=== PATIENT | male | born 1945 | race African-American/Black ===

== ENCOUNTER 2016-12-21 12:32 | Day surgery (SDC) | payer OTHER, BC ==
--- NOTE | 2016-12-21 14:18 | PDOC ---
History of Present Illness <Zhen Freeman - Last Filed: 12/21/16 15:14> - History of Present Illness Initial Comments: 12/21/16 15:17 The patient is a 71 year old male, with a significant past medical history of ESRD (HD on Wednesday, , and Wednesday), who presents to the emergency department sent from Dr. Samano office for a clogged AV graft today. The patient denies any other symptoms, but admits that his graft feels clogged. He denies chest pain, shortness of breath, headache and dizziness. He denies fever, chills, nausea, vomit, diarrhea and constipation. He denies dysuria, frequency, urgency and hematuria. PCP - Dr. Kunz [id number] <Marilin Taylor - Last Filed: 12/21/16 15:19> - General Stated Complaint: AV GRAFT EVAL Time Seen by Provider: 12/21/16 14:16 Past History - Past Medical History Anemia: No Asthma: No Cancer: No Cardiac Disorders: Yes (2008-[facility]) CVA: No COPD: No CHF: No Dementia: No Diabetes: No Dialysis: Yes (Wed) GI Disorders: No Disorders: No HTN: Yes Hypercholesterolemia: No HIV: Yes Liver Disease: No Seizures: No Thyroid Disease: No - Surgical History Abdominal Surgery: No Appendectomy: No Cardiac Surgery: Yes ([facility]) Cholecystectomy: No Lung Surgery: No Neurologic Surgery: No Orthopedic Surgery: No - Psycho/Social/Smoking Cessation Hx Suicidal Ideation: No Smoking History: Current every day smoker Have you smoked in the past 12 months: Yes Number of Cigarettes Smoked Daily: 20 Information on smoking cessation initiated: No 'Breaking Loose' booklet given: 10/24/14 Hx Alcohol Use: No Drug/Substance Use Hx: No Substance Use Type: None Hx Substance Use Treatment: No <Zhen Freeman - Last Filed: 12/21/16 15:14> <Marilin Taylor - Last Filed: 12/21/16 15:19> - Past Medical History Allergies/Adverse Reactions: Allergies Allergy/AdvReac Type Severity Reaction Status Date / Time No Known Drug Allergies Allergy Verified 12/21/16 12:39 Home Medications: Ambulatory Orders Aspirin [ASA -] 325 mg PO DAILY 10/23/14 Carvedilol [Coreg -] 25 mg PO BID 10/23/14 Clopidogrel Bisulfate [Plavix -] 75 mg PO DAILY 10/23/14 Efavirenz [Sustiva] 600 mg PO DAILY 10/23/14 Hydralazine HCl 25 mg PO TID 10/23/14 Ipratropium/Albuterol Sulfate [Combivent Respimat Inhal [place]] 1 inh IH QID Lamivudine Oral Soln [Epivir Oral Solution -] 150 mg PO DAILY 10/23/14 Sevelamer Carbonate [Renvela] 2,400 mg PO TID 10/23/14 Tenofovir Disoproxil Fumarate [Viread] 300 mg PO WEEKLY 10/23/14 Oxycodone HCl [Roxicodone -] 5 mg PO Q6H #20 tablet 10/24/14 Review of Systems - Review of Systems Constitutional: No: Chills, Fever Respiratory: No: Shortness of Breath Cardiac (ROS): No: Chest Pain Musculoskeletal: Yes: Muscle Pain All Other Systems: Reviewed and Negative <Zhen Freeman - Last Filed: 12/21/16 15:14> *Physical Exam - Vital Signs Last Vital Signs Temp Pulse Resp BP Pulse Ox 98 F 80 18 111/61 96 12/21/16 12:33 12/21/16 12:33 12/21/16 12:33 12/21/16 12:33 12/21/16 12:33 <Zhen Freeman - Last Filed: 12/21/16 15:14> - Vital Signs Last Vital Signs Temp Pulse Resp BP Pulse Ox 98 F 80 18 111/61 96 12/21/16 12:33 12/21/16 12:33 12/21/16 12:33 12/21/16 12:33 12/21/16 12:33 - Physical Exam Comments: 12/21/16 15:18 GENERAL: The patient is awake, alert, and fully oriented, in no acute distress. HEAD: Normal with no signs of trauma. EYES: Pupils equal, round and reactive to light, extraocular movements intact, sclera anicteric, conjunctiva clear with no pallor. ENT: Ears normal, nares patent, oropharynx clear without exudates. Moist mucous membranes. NECK: Normal range of motion, supple without lymphadenopathy, JVD, or masses. LUNGS: Breath sounds equal, clear to auscultation bilaterally. No wheeze/ crackles. HEART: Regular rate and rhythm, normal S1 and S2 without murmur or rub. ABDOMEN: Soft/nontender/nondistended. BS wnl. No guarding or rebound. No palpable masses. No hepatosplenomegaly. EXTREMITIES: (+) Left arm fistula. good distal pulses. no extremity edema. No easily palpable thrill through fistula. No obvious cellulitis. Normal range of motion, no edema. No clubbing or cyanosis. No cords, erythema, or tenderness. NEUROLOGICAL: Cranial nerves II through XII grossly intact. Normal speech, normal gait. PSYCH: Normal mood, normal affect. SKIN: Warm, Dry, normal turgor, no rashes or lesions noted. <Marilin Taylor - Last Filed: 12/21/16 15:19> Heart Score/ECG Review #1 ECG reviewed & interpreted by me at: 15:06 General ECG Interpretation: Sinus Rhythm, Normal Rate (69), Normal Intervals ( LBBB), No acute ischemic changes <Zhen Freeman - Last Filed: 12/21/16 15:14> ED Treatment Course - LABORATORY CBC & Chemistry Diagram: 12/21/16 14:30 12/21/16 14:30 <Zhen Freemna - Last Filed: 12/21/16 15:14> - LABORATORY CBC & Chemistry Diagram: 12/21/16 14:30 12/21/16 14:30 - ADDITIONAL ORDERS Additional order review: 12/21/16 14:30 RBC 2.94 L MCV 109.7 H MCHC 33.6 RDW 15.4 MPV 7.1 L Neutrophils % 74.2 Lymphocytes % 14.7 Monocytes % 8.9 Eosinophils % 1.6 Basophils % 0.6 <Marilin Taylor - Last Filed: 12/21/16 15:19> Medical Decision Making - Medical Decision Making 12/21/16 15:03 A portion of this note was documented by scribe services under my direction. I have reviewed the details of the note, within reason, and agree with the documentation with the following case summary and management plan written by me. 71-year-old male sent for left AV graft repair secondary to clot. Had successful dialysis 2 days ago as scheduled. Complaining of some swelling to the area, otherwise without symptoms. Exam as noted 71-year-old male for AV graft repair. Pre-op labs Dr. Choe aware, awaiting OR <Zhen Freeman - Last Filed: 12/21/16 15:14> *DC/Admit/Observation/Transfer - Discharge Dispostion Admit: Yes <Zhen Freeman - Last Filed: 12/21/16 15:14> - Attestations Scribe Attestion: 12/21/16 15:19 Documentation prepared by Marilin Taylor, acting as medical laboratory manager for Zhen Freeman MD, <Marilin Taylor - Last Filed: 12/21/16 15:19> Diagnosis at time of Disposition: Clotted renal dialysis AV graft Qualifiers: Encounter type: initial encounter Qualified Code(s): T82.868A - Thrombosis due to vascular prosthetic devices, implants and grafts, initial encounter - Referrals Referrals: Anthony Kunz MD [Primary Care Provider] -
[2016-12-21 14:52] LABS: BASOPHIL 0.6 % (0-2.0); EOSINOPHIL 1.6 % (0-4.5); MCH 36.9 pg (25.7-33.7); MCHC 33.6 g/dl (32.0-35.9); MEAN CELL VOLUME 109.7 fl (80-96); MEAN PLT VOLUME 7.1 fl (7.5-11.1); NEUTROPHILS 74.2 % (42.8-82.8); PLATELET COUNT 164 K/MM3 (134-434); RDW 15.4 % (11.9-15.9); WHITE BLOOD COUNT 8.7 K/mm3 (4.0-10.0)
[2016-12-21 15:10] LABS: INR 1.11 (0.82-1.09); PROTHROMBIN TIME (PATIENT) 12.2 SEC (9.98-11.88)
[2016-12-21 15:13] LABS: ACTIVATED PTT 33.2 SECONDS (26.9-34.4)
[2016-12-21 15:18] LABS: ALBUMIN 2.9 g/dl (3.4-5.0); ANION GAP 8 (8-16); BILIRUBIN,TOTAL 0.3 mg/dL (0.2-1.0); CALCIUM 8.3 mg/dL (8.5-10.1); CO2 29 mmol/L (21-32); GLUCOSE,RANDOM 109 mg/dL (74-106); SGOT/AST 30 U/L (15-37); SGPT/ALT 20 U/L (12-78); TOT PROT 7.7 g/dl (6.4-8.2)
[2016-12-21 15:23] LABS: ALK PHOS 119 U/L (45-117)
--- NOTE | 2016-12-21 15:37 | HP ---
Satellite H - Chief Complaint Chief Complaint: Clotted AV graft History of Present Illness: 71 year old male ESRD on HD with AV graft which is thrombosed. Last dialysis Wednesday. He has had several angio procedures and stents done in the [place]. History Source: Patient Limitations to Obtaining History: No Limitations - Past Medical History Allergies/Adverse Reactions: Allergies Allergy/AdvReac Type Severity Reaction Status Date / Time No Known Drug Allergies Allergy Verified 12/21/16 12:39 Cardiovascular: Yes: HTN Renal/: Yes: Renal Failure Infectious Disease: Yes: AIDS - Current Medications Current Medications: Home Medications Medication Instructions Recorded Aspirin [ASA -] 325 mg PO DAILY 10/23/14 Carvedilol [Coreg -] 25 mg PO BID 10/23/14 Clopidogrel Bisulfate [Plavix -] 75 mg PO DAILY 10/23/14 Efavirenz [Sustiva] 600 mg PO DAILY 10/23/14 Hydralazine HCl 25 mg PO TID 10/23/14 Ipratropium/Albuterol Sulfate 1 inh IH QID 10/23/14 [Combivent Respimat Inhal [place]] Lamivudine Oral Soln [Epivir Oral 150 mg PO DAILY 10/23/14 Solution -] Sevelamer Carbonate [Renvela] 2,400 mg PO TID 10/23/14 Tenofovir Disoproxil Fumarate 300 mg PO WEEKLY 10/23/14 [Viread] Oxycodone HCl [Roxicodone -] 5 mg PO Q6H #20 tablet 10/24/14 Satellite Physical Exam - Physical Examination Vital Signs: Vital Signs Period Temp Pulse Resp BP Sys/Adame Pulse Ox Last 24 Hr 98 F 80 18 111/61 96 General Appearance: No Distress ENT: Clear Lung: Clear to auscultation Heart: Regular rate & rhythm Abdomen: Soft Extremities: No edema, Other (Upper arm graft with no pulse. 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
[2016-12-21] MEDS ORDERED: HEPARIN NA (PORCINE) 5,000 UNITS/ML 1ML VIAL ONE ×3 (15:47→19:48)
[2016-12-21] MEDS ORDERED: LIDOCAINE HCL 1%, 10 MG/ML (20ML VIAL) ONE ×2 (15:47→18:26)
[2016-12-21 16:21] LABS: CREATININE 7.6 mg/dL (0.7-1.3)
[2016-12-21] MEDS ORDERED: INSULIN REGULAR HUMAN 100 UNITS/ML *VIAL IVPUSH ONE (16:38)
[2016-12-21] MEDS ORDERED: DEXTROSE 50%-WATER - 25 GM/50 ML VIAL IVPUSH ONE (16:38)
[2016-12-21] MEDS ORDERED: INSULIN REGULAR HUMAN 100 UNITS/ML *VIAL ONE (16:56)
[2016-12-21] MEDS ORDERED: DEXTROSE 50%-WATER 50 ML DISP.SYRIN ONE (16:56)
[2016-12-21] MEDS ORDERED: MIDAZOLAM HCL 2 MG/2 ML SINGLE DOSE VIAL ONE (19:00)
[2016-12-21] MEDS ORDERED: LIDOCAINE HCL 1%, 10 MG/ML (20ML VIAL) IJ ONE (19:20)
[2016-12-21] MEDS ORDERED: oxyCODONE HCL 5 MG TABLET PO PRN (20:15)
--- NOTE | 2016-12-21 20:15 | OP ---
Operative Note - Note: Operative Date: 12/21/16 Pre-Operative Diagnosis: Thrombosed AV graft left arm Operation: Open thrombectomy AV graft, venogram Findings: Chronic scarred graft with multiple overlapping stents in proximal and distal ends. Venogram of the venous outflow showed patent stents with no severe stenosis. Central veins were patent Post-Operative Diagnosis: Same as Pre-op Surgeon: Nagi Choe Anesthesiologist/BLOCK FEEDER: Jonathon Pacheco Anesthesia: Fractional Specimens Removed: Clot Estimated Blood Loss (mls): 50
[2016-12-21] MEDS ORDERED: ONDANSETRON 4 MG/2 ML VIAL IVPUSH PRN (20:24)
[2016-12-21] MEDS ORDERED: PATIENT'S OWN MEDICATION (NON-FORMULARY) (Ipratropium/Albuterol Sulfate [Combivent Respima IH SCH (22:00)
[2016-12-21] MEDS: hydrALAZINE HCL 25 MG TABLET (FP) PO SCH (22:14)
[2016-12-21] MEDS: CARVEDILOL 25 MG TABLET (FP) PO SCH (22:15)
[2016-12-21 23:10] VITALS: BMI 18.8
[2016-12-22] MEDS: hydrALAZINE HCL 25 MG TABLET (FP) PO SCH ×2 (06:12→14:33)
[2016-12-22] MEDS: SEVELAMER CARBONATE 800 MG TAB (FP) PO SCH ×2 (08:09→11:57)
--- NOTE | 2016-12-22 08:51 | PN ---
Progress Note (short form) - Note Progress Note: RENAL 71 HIV POS ESRD ON HD FOR YEARS LEFT ARM AVG CLOTTED OP NOTE REVIEWED SUCCESSFUL DECLOT PATENT STENTS K 6.4 HB 10.9 ABOUT TO START HD HIPS 20 NR 3 HR K2 CA2.5 [facility] 1.5 KG NO EPO DC HOME POST HD
[2016-12-22] MEDS ORDERED: CLOPIDOGREL BISULFATE 75 MG TABLET (FP) PO SCH (10:00)
[2016-12-22] MEDS ORDERED: lamiVUDine 10 MG/1 ML BULK BOTTLE PO SCH (10:00)
[2016-12-22] MEDS ORDERED: EFAVIRENZ 600 MG TABLET PO SCH (10:00)
[2016-12-22] MEDS ORDERED: ASPIRIN 81 MG CHEWABLE TABLETS PO SCH (10:00)
[2016-12-22] MEDS: CARVEDILOL 25 MG TABLET (FP) PO SCH (11:14)
[2016-12-22] MEDS ORDERED: PT OWN MED DRAWER 7, Y5N ONE (11:15)
--- NOTE | 2016-12-22 11:40 | EKG ---
Test Reason : Blood Pressure : / mmHG Vent. Rate : 069 BPM Atrial Rate : 069 BPM P-R Int : 192 ms QRS Dur : 162 ms QT Int : 470 ms P-R-T Axes : 050 -34 137 degrees QTc Int : 503 ms NORMAL SINUS RHYTHM LEFT AXIS DEVIATION LEFT BUNDLE BRANCH BLOCK ABNORMAL ECG WHEN COMPARED WITH ECG OF 24-OCT-2014 07:53, T WAVE VARIATION Confirmed by MYRANDA TATE MD ([id number]) on 12/22/2016 11:40:18 AM Referred By: Confirmed By:MYRANDA TATE MD
[2016-12-22 12:12] VITALS: TEMP 99.1
--- NOTE | 2016-12-22 12:13 | PN ---
Progress Note (short form) - Note Progress Note: Patient seen and examined prior to HD. Patient states he is feeling ok and has no pain. He is looking forward to going home after dialysis and his will pick him up. No complaints. Last Vital Signs Temp Pulse Resp BP Pulse Ox 99.1 F 69 20 123/60 98 12/22/16 09:00 12/22/16 09:00 12/22/16 09:00 12/22/16 09:00 12/21/16 23:13 Exam: Gen: NAD LUE with dressing c/d/i, good thrill A/P POD# 1 s/p open thrombectomy AV graft, venogram Patient to be discharged today after HD, plan to follow up with Dr. Choe in [address] Choe
--- NOTE | 2016-12-22 12:57 | OP ---
DATE OF OPERATION: 12/21/2016 SURGEON: Nagi Soto MD PROCEDURE: Open thrombectomy, left arm atrioventricular graft with venogram. PREOPERATIVE DIAGNOSIS: Thrombosed atrioventricular graft. POSTOPERATIVE DIAGNOSIS: Thrombosed atrioventricular graft. ANESTHESIA: Fractional. ANESTHESIOLOGIST: Jonathon Pacheco DO OPERATIVE FINDINGS: The left upper arm AV graft was thrombosed. The graft contained multiple overlapping stents at the proximal and distal ends with a short area of unstented graft in the midportion of the upper arm. Venography after thrombectomy showed no severe stenosis in the venous outflow section of the graft. OPERATIVE PROCEDURE: Following routine patient identification with site and side verification, intravenous sedation was established. The left arm was prepped with ChloraPrep. Time-out was performed. Then 1% Xylocaine infiltrated over the portion of the graft in the upper arm where there were no stents. Skin incision was made and carried down to the subcutaneous tissues using cautery for hemostasis. The graft was mobilized from the surrounding tissues, which were heavily indurated and adherent to the graft. The graft was encircled with Vessel Loops. A transverse incision was made in the graft. A No. 4 Leroy catheter was passed proximally and withdrawn with removal of clot. Several more passes of the catheter were attempted. There was multiple catheter breakage due to the irritation from the stents. Eventually venous back bleeding was restored. Venography with dilute contrast was then performed with the above-noted findings. The graft was filled with heparin solution and was occluded with a vascular clamp. Thrombectomy of the arterial end was then performed with removal of clot and orthodox of arterial flow. The graft was filled with heparin solution and was occluded with a clamp. The graft incision was then closed with interrupted and running suture of 6-0 Prolene. Clamps were removed. A pulse was present in the graft proximal to the incision. The wound was closed with interrupted suture of 3-0 Vicryl and skin don. A sterile dressing was applied, and the patient was taken to the recovery room in stable condition. NAGI SOTO M.D. [id number]
[2016-12-22 16:51] VITALS: BP 113/64; PULSE 79
[2016-12-25] MEDS ORDERED: TENOFOVIR DISOPROXIL FUMARATE 300 MG TABLET PO SCH (10:00)
== END 2016-12-22 16:05 | disposition home or self-care (01) ==
LOC: JER 12:32 → JASUSAT 15:07 → J6S 21:32 → JASUSAT 12-22 03:29
PROVIDERS: ATTEND Surgery
PROC: 05CY0ZZ Extirpation of Matter from Upper Vein, Open Approach (ICD-10-PCS; principal; 2016-12-21 16:30)
DX: T82.868A Thrombosis due to vascular prosthetic devices, implants and grafts, initial encounter (principal); Y83.8 Other surgical procedures as the cause of abnormal reaction of the patient, or of later complication, without mention of misadventure at the time of the procedure; Y92.9 Unspecified place or not applicable; I12.0 Hypertensive chronic kidney disease with stage 5 chronic kidney disease or end stage renal disease; N18.6 End stage renal disease; Z99.2 Dependence on renal dialysis; B20 Human immunodeficiency virus [HIV] disease
CPT/HCPCS: 76000-TC; 80053; 85610; 85730; 86850; 86900; 86901; 93005; 93010; 94760; 99284-25; J1644